=== PATIENT | male | born 2000 | race Caucasian/White ===

== ENCOUNTER → 2020-08-10 12:52 | Outpatient (CLI) | payer OTHER, SELFPAY ==
--- NOTE | ~2020-08-10 | CT_ITS ---
EXAMINATION: CT brain wo con DATE: 08/10/2020 13:15 INDICATION: Head deformity TECHNIQUE: Computed tomography (CT) of the head was performed without intravenous contrast. The mA wa s adjusted according to patient size. Iterative reconstruction technique was employed. Exam dose: 59 9.57 mGy-cm total exam DLP. COMPARISON: None FINDINGS: No skull fracture or bone destruction is evident. The included paranasal sinuses and mastoi d air cells are normally developed and aerated. No intracranial mass lesion or hemorrhage or cerebrovascular accident. No midline shift or mass effec t. Normal ventricular size. Normal yanez-white matter differentiation. No subdural or epidural hematom a. IMPRESSION: No significant abnormality Reviewed, dictated and finalized at [facility]. Reviewed, dictated and finalized at [facility]. UNICATIONS ENGINEERING TECHNICIAN IMPRESSION: No significant abnormality
== END ==
PROVIDERS: Visit Provider Family Medicine
DX: M95.2 Other acquired deformity of head (principal)
CPT/HCPCS: 70450